=== PATIENT | female | born 1995 | race Caucasian/White ===

== ENCOUNTER 2018-02-28 20:31 | Emergency (ER) | payer BC ==
[~2018-02-28] VITALS: Ht 160 cm; Wt 62.0 kg
[2018-02-28 20:41] VITALS: TEMP 36.7; Ht 160 cm; Wt 62.0 kg
[2018-02-28] MEDS ORDERED: KETOROLAC TROMETHAMINE 30 MG/ML VIAL IV STA (21:30)
[2018-02-28] MEDS ORDERED: DiphenhydrAMINE HCL 50 MG/ML VIAL IV STA (21:30)
[2018-02-28] MEDS ORDERED: ONDANSETRON INJ 2 MG/ML 2 ML VIAL IV STA (21:30)
[2018-02-28] MEDS ORDERED: SODIUM CHLORIDE 0.9% 1000ML 1,000 ML IV STA (21:30)
--- NOTE | 2018-02-28 21:33 | EMERGENCY ROOM VISIT NOTE ---
History Report prepared by Augustine: Itzel Gordon Under the Supervision of: Dr. Ervin Zapata M.D. First contact with patient: 21:22 Chief Complaint: HEADACHE Stated Complaint: HEADACHE History of Present Illness The patient is a 22 year old female who presents to the Emergency Room with complaints of a headache beginning at 0900 this morning. The patient states that she drove to [place] recently and then flew back. The patient states that she is bulimic and has recently been vomiting more recently secondary to stress. She states that there has not been blood in her vomit. 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 The patient reports feeling light-headed, but denies passing out, fevers, and rashes. She denies a history of headaches. Source of History: patient Onset: 0900 this morning Position: head Quality: other (headache) Associated Symptoms: + vomiting (secondary to bulimia), + weakness (light- headedness), No fevers, No rash Note: denies: passing out, blood in vomit Review of Systems See HPI for pertinent positives & negatives. A total of 10 systems reviewed and were otherwise negative. Past Medical & Surgical Medical Problems: (1) Bulimia Family History No pertinent family history Social History Smoking Status: Current Every Day Smoker Alcohol Use: occasionally Occupation Status: student Physical Exam Vital Signs Date Time Temp Pulse Resp B/P (MAP) Pulse Ox O2 Delivery O2 Flow Rate FiO2 02/28/18 22:32 60 16 100/58 99 Room Air 02/28/18 20:41 36.7 59 16 119/80 99 Room Air Physical Exam GENERAL: Patient is dehydrated appearing and in mild distress. HEAD: No acute trauma, normocephalic atraumatic ENT: Mucous membranes dry, no nasal congestion. EYES: Equal/Reactive Bilaterally, No scleral icterus, Normal ROM NECK: No nuchal rigidity, no meningismus, trachea is midline, full ROM LUNGS: No dyspnea. Clear to auscultation and equal bilaterally. No wheeze, no rhonchi. HEART: Regular rate and rhythm. No murmurs, rubs, gallops appreciated. ABDOMEN: Soft, nontender, bowel sounds positive, no masses appreciated, no peritonitis. BACK: No midline tenderness, no CVA tenderness EXTREMITIES: Normal motion all extremities, no cyanosis, no edema. NEUROLOGIC: Awake, Alert, Oriented, no acute motor or sensory deficits, no focal weakness, cranial nerves grossly intact. SKIN: No rash, no jaundice, no diaphoresis. Medical Decision & Procedures Laboratory Results 02/28/18 20:46 Red Blood Count 4.63, Mean Corpuscular Volume 85.5, Mean Corpuscular Hemoglobin 30.2, Mean Corpuscular Hemoglobin Concent 35.4, Mean Platelet Volume 10.2, Neutrophils (%) (Auto) 47.9, Lymphocytes (%) (Auto) 42.5, Monocytes (%) (Auto) 7.2, Eosinophils (%) (Auto) 1.8, Basophils (%) (Auto) 0.3, Neutrophils # (Auto) 3.79, Lymphocytes # (Auto) 3.35, Monocytes # (Auto) 0.57, Eosinophils # (Auto) 0.14, Basophils # (Auto) 0.02 02/28/18 20:46 Test 02/28/18 20:46 White Blood Count 7.89 K/uL (4.8-10.8) Red Blood Count 4.63 M/uL (4.2-5.4) Hemoglobin 14.0 g/dL (12.0-16.0) Hematocrit 39.6 % (37-47) Mean Corpuscular Volume 85.5 fL (80-100) Mean Corpuscular Hemoglobin 30.2 pg (25-34) Mean Corpuscular Hemoglobin Concent 35.4 g/dl (32-36) Platelet Count 195 K/uL (130-400) Mean Platelet Volume 10.2 fL (7.4-10.4) Neutrophils (%) (Auto) 47.9 % Lymphocytes (%) (Auto) 42.5 % Monocytes (%) (Auto) 7.2 % Eosinophils (%) (Auto) 1.8 % Basophils (%) (Auto) 0.3 % Neutrophils # (Auto) 3.79 K/uL (1.4-6.5) Lymphocytes # (Auto) 3.35 K/uL (1.2-3.4) Monocytes # (Auto) 0.57 K/uL (0.11-0.59) Eosinophils # (Auto) 0.14 K/uL (0-0.5) Basophils # (Auto) 0.02 K/uL (0-0.2) RDW Standard Deviation 39.5 fL (36.4-46.3) RDW Coefficient of Variation 12.6 % (11.5-14.5) Immature Granulocyte % (Auto) 0.3 % Immature Granulocyte # (Auto) 0.02 K/uL (0.00-0.02) Anion Gap 6.0 mmol/L (3-11) Est Creatinine Clear Calc Drug Dose 104.0 ml/min Estimated GFR () 141.2 Estimated GFR (Non- 121.8 BUN/Creatinine Ratio 18.8 (10-20) Calcium Level 9.1 mg/dl (8.5-10.1) Magnesium Level 2.1 mg/dl (1.8-2.4) Total Bilirubin 0.3 mg/dl (0.2-1) Aspartate Amino Transf (AST/SGOT) 19 U/L (15-37) Alanine Aminotransferase (ALT/SGPT) 19 U/L (12-78) Alkaline Phosphatase 45 U/L (45-117) Total Protein 7.9 gm/dl (6.4-8.2) Albumin 4.2 gm/dl (3.4-5.0) Globulin 3.7 gm/dl (2.5-4.0) Albumin/Globulin Ratio 1.1 (0.9-2) Laboratory results as reviewed by me. Medications Administered Medications (Trade) Dose Ordered Sig/Melissa Route Start Time Stop Time Status Last Admin Dose Admin Sodium Chloride 1,000 ml @ 999 mls/hr Q1H1M STAT IV 02/28/18 21:30 02/28/18 22:30 DC 02/28/18 21:40 999 MLS/HR Ketorolac Tromethamine (Toradol Inj) 30 mg NOW STAT IV 02/28/18 21:30 02/28/18 21:31 DC 02/28/18 21:40 30 MG Diphenhydramine HCl (Benadryl Inj) 50 mg NOW STAT IV 02/28/18 21:30 02/28/18 21:31 DC 02/28/18 21:40 50 MG Ondansetron HCl (Zofran Inj) 4 mg NOW STAT IV 02/28/18 21:30 02/28/18 21:31 DC 02/28/18 21:40 4 MG Ondansetron HCl (ZOFRAN ODT 4MG Home Pack) 1 [facility] UD ONCE PO 02/28/18 22:45 02/28/18 22:46 DC 02/28/18 22:44 1 HOMEPACK ED Course 2121: The patient was evaluated in room B9. A complete history and physical exam was performed. 2199: The patient does not want a CT scan done. 2234: I checked on the patient. She understands the risk that something could be missed if she does not have a CT scan done. She does not want to talk to a mental health counselor. I again reiterated that we are always here for her and she again denies any suicidal or homicidal concerns. Discussed results and discharge instructions: She verbalized understanding and agreement. The patient is ready for discharge. Medical Decision Differential: Headache, Migraine, Cluster Headache, Seizure, Meningitis, Sinusitis, CO exposure, ICH/SAH, Infectious, Tumor, Sinus Thrombosis, Arterial Dissection, amongst other pathologies entertained. 22 yr old female with headache and fatigue and some nausea/vomiting. She does not have much in way of headache history thus I felt imaging reasonable and initially ordered CT head, though after a little while she declined this. Given above with some IV fluids and patient with complete resolution of symptoms. No reason to suspect dissection. Seems unlikely thrombosis without further symptoms. She has good labs which is important given her bulimia issues. She makes it clear that she is not interested in talking to mental health and is adamant she is not suicidal nor homicidal. She states she feels much better and wishes to go home. She is stable and breathing comfortably. She is aware she can return at any time if worsening symptoms or other concerns. Aware we are always here to help if need arise or other concerns. Suspect headache is multi factorial of dehydration, stress and poor sleep recently. Head Trauma GCS Score: 15 Medication Reconcilliation Current Medication List: was personally reviewed by me Blood Pressure Screening Patient's blood pressure: Normal blood pressure Impression Primary Impression: Headache Additional Impressions: Dehydration Nausea Scribe Attestation The scribe's documentation has been prepared under my direction and personally reviewed by me in its entirety. I confirm that the note above accurately reflects all work, treatment, procedures, and medical decision making performed by me. Departure Information Dispostion Home / Self-Care Forms HOME CARE DOCUMENTATION FORM, IMPORTANT VISIT INFORMATION Patient Instructions Headache Pain, My [facility] Additional Instructions We are always here to help. Return if any worsening symptoms or other concerns. Keep well hydrated and used Tylenol/Motrin as needed for headaches. Problem Qualifiers
[2018-02-28 21:40] LABS: BASO % 0.3 %; BASO ABS # 0.02 K/uL (0-0.2); EOS % 1.8 %; EOS ABS # 0.14 K/uL (0-0.5); HEMATOCRIT 39.6 % (37-47); IG# 0.02 K/uL (0.00-0.02); LYMPH % 42.5 %; LYMPH ABS # 3.35 K/uL (1.2-3.4); MEAN CELL VOLUME 85.5 fL (80-100); MEAN CORPUSCULAR HEMOGLOBIN 30.2 pg (25-34); MEAN CORPUSCULAR HGB CONC 35.4 g/dl (32-36); MEAN PLATELET VOLUME 10.2 fL (7.4-10.4); MONO % 7.2 %; MONO ABS # 0.57 K/uL (0.11-0.59); NEUT % 47.9 %; NEUT ABS # 3.79 K/uL (1.4-6.5); PLATELET COUNT 195 K/uL (130-400); RED CELL DISTRIBUTION WIDTH CV 12.6 % (11.5-14.5); RED CELL DISTRIBUTION WIDTH SD 39.5 fL (36.4-46.3); WHITE BLOOD COUNT 7.89 K/uL (4.8-10.8)
[2018-02-28 21:51] LABS: ALBUMIN 4.2 gm/dl (3.4-5.0); CALCIUM 9.1 mg/dl (8.5-10.1); CREATININE 0.69 mg/dl (0.60-1.20); POTASSIUM 3.8 mmol/L (3.5-5.1); TOTAL PROTEIN 7.9 gm/dl (6.4-8.2)
[2018-02-28 22:32] VITALS: BP 100/58; PULSE 60; O2SAT 99
[2018-02-28] MEDS ORDERED: ONDANSETRON HOME PACK 4MG OD TAB PO ONE (22:45)
== END 2018-02-28 22:45 | disposition home or self-care (01) ==
LOC: EDBD 20:31 → C.EDB 20:33
DX: R51 Headache (principal); E86.0 Dehydration; R11.2 Nausea with vomiting, unspecified; F50.2 Bulimia nervosa; F17.200 Nicotine dependence, unspecified, uncomplicated